=== PATIENT | male | born 1990 | race Two or more races ===

== ENCOUNTER 2016-07-11 19:08 | Emergency (ER) | payer OTHER ==
[2016-07-11] MEDS ORDERED: ONDANSETRON 4 MG ODT TAB ONE (20:03)
== END 2016-07-11 20:39 | disposition home or self-care (01) ==
LOC: ED 19:08
DX: J11.1 Influenza due to unidentified influenza virus with other respiratory manifestations (principal); R11.0 Nausea; F17.210 Nicotine dependence, cigarettes, uncomplicated
CPT/HCPCS: 99283 ×2; A9270